=== PATIENT | male | born 1990 | race Caucasian/White ===

== ENCOUNTER 2020-01-19 16:08 | Emergency (ER) | payer BC, OTHER ==
[2020-01-19] MEDS ORDERED: Diphtheria,Pertussis(Acell),Tetanus Vaccine 0.5 ML Syringe IM ONE (19:02)
[2020-01-19] MEDS ORDERED: Proparacaine 0.5% Ophth Soln 15 ML Bottle EYERT ONE (19:02)
[2020-01-19] MEDS ORDERED: Fluorescein 1 MG Ophth Strip EYERT ONE (19:02)
[2020-01-19] MEDS ORDERED: Ciprofloxacin 0.3% Ophth Soln 5 ML Bottle EYERT SCH (19:45)
--- NOTE | 2020-01-19 19:46 | EDM.PDOC ---
ED HPI GENERAL MEDICAL PROBLEM - General Chief Complaint: Eye Problems Stated Complaint: RIGHT EYE INJURY Time Seen by Provider: 01/19/20 17:55 - History of Present Illness INITIAL COMMENTS - FREE TEXT/NARRATIVE: 29-year-old male presents with right-sided eye pain. This morning when the patient awoke he noticed his eye was really watery and he has some discomfort almost to the top of his eye. Patient does not recall getting foreign body in his eye however he works in a wood shop usually if he gets a wood chip in his eye he is able to get out without too much difficulty. When the patient went to bed last night he was doing fine but when he woke up this morning his eye was watery and sore. He has no idea when his last tetanus shot was. Right Eye Pain Score (Numeric/FACES): 5 - Related Data Allergies Allergy/AdvReac Type Severity Reaction Status Date / Time cat dander Allergy Itching Verified 01/19/20 17:02 hay fever Allergy Shortness Uncoded 01/19/20 17:02 of Breath Home Meds: Home Meds . [No Known Home Meds] 01/19/20 [History] Past Medical History HEENT History: Reports: Impaired Vision - Past Surgical History HEENT Surgical History: Reports: Oral Surgery Social & Family History - Caffeine Use Caffeine Use: Reports: Energy Drinks - Recreational Drug Use Recreational Drug Use: No ED ROS GENERAL - Review of Systems Review Of Systems: See Below Constitutional: Reports: No Symptoms HEENT: Reports: Eye Pain Respiratory: Reports: No Symptoms Cardiovascular: Reports: No Symptoms GI/Abdominal: Reports: No Symptoms ED EXAM GENERAL W FULL EYE - Physical Exam Exam: See Below Exam Limited By: No Limitations General Appearance: Alert, No Apparent Distress Eye Exam: Right Eye: Conjunctival Injection, Left Eye: Normal Inspection, Bilateral Eye: EOMI, Normal Fundi, PERRL Eyelids: Bilateral: Normal Appearance Conjunctiva & Sclera: Right: Injected, Left: Normal Appearance Cornea Exam: Right: Corneal Abrasion (At the 10 o'clock position), Examined with Flourescein Extraocular Movements: Bilateral: Intact Pupillary Reaction: Bilateral: Brisk Anterior Chamber: Bilateral: Normal Appearance Posterior Chamber: Bilateral: Normal Funduscopic Respiratory/Chest: No Respiratory Distress, Lungs Clear, Normal Breath Sounds Cardiovascular: Regular Rate, Rhythm, No Edema, No Murmur Course - Vital Signs Last Recorded V/S: Last Vital Signs Temp 36.7 C 01/19/20 16:58 Pulse 80 01/19/20 16:58 Resp 14 01/19/20 16:58 BP 139/100 H 01/19/20 16:58 Pulse Ox 95 01/19/20 16:58 - Orders/Labs/Meds Orders: Active Orders 24 hr Category Date Time Status Vaccines to be Administered [RC] PER UNIT ROUTINE Care 01/19/20 19:04 Active Ciprofloxacin [Ciloxan 0.3% Ophth Soln] Med 01/19/20 19:45 Ordered 3.5 ml EYERT Q8H Ketorolac [Acular 0.5% Ophth Soln] Med 01/19/20 21:00 Ordered 2.5 ml EYERT QID Medication Orders Ciprofloxacin (Ciloxan 0.3% Ophth Soln) 3.5 ml EYERT Q8H KAYLENE Ketorolac Tromethamine (Acular 0.5% Ophth Soln) 2.5 ml EYERT QID KAYLENE Meds: Medications Generic Name Dose Route Start Last Admin Trade Name Freq PRN Reason Stop Dose Admin Ciprofloxacin 3.5 ml 01/19/20 19:45 Ciloxan 0.3% Ophth Soln EYERT Q8H KAYLENE Ketorolac Tromethamine 2.5 ml 01/19/20 21:00 Acular 0.5% Ophth Soln EYERT QID KAYLENE Discontinued Medications Generic Name Dose Route Start Last Admin Trade Name Freq PRN Reason Stop Dose Admin Diphtheria/Tetanus/Acell Pertussis 0.5 ml 01/19/20 19:02 01/19/20 19:18 Adacel IM 01/19/20 19:03 0.5 ml .ONCE ONE Administration Fluorescein Sodium 1 mg 01/19/20 19:02 01/19/20 19:18 Ful-Alina EYERT 01/19/20 19:03 1 mg ONETIME ONE Administration Proparacaine HCl 0.1 ml 01/19/20 19:02 01/19/20 19:18 Proparacaine 0.5% Ophth Soln EYERT 01/19/20 19:03 0.1 ml ONETIME ONE Administration - Re-Assessments/Exams Free Text/Narrative Re-Assessment/Exam: 01/19/20 19:50 Partially healed corneal defect, or abrasion noted on the right eye with a slit lamp examination and fluorescein. Departure - Departure Time of Disposition: 19:50 Disposition: Home, Self-Care 01 Clinical Impression: Corneal abrasion - Discharge Information Referrals: Paula Barros MD [Primary Care Provider] - Additional Instructions: Return to the emergency room with any questions problems or worsening symptoms. Use the ketorolac drops 2 drops every 6 hours as needed for eye pain you should not need this more than 24 hours. Use on the right eye Use the Cipro drops 2 drops every 8 hours for 3 days to the right eye Sepsis Event Note (ED) - Evaluation Sepsis Screening Result: No Definite Risk - Focused Exam Vital Signs: Vital Signs Temp Pulse Resp BP Pulse Ox 01/19/20 16:58 36.7 C 80 14 139/100 H 95 - My Orders Last 24 Hours: My Active Orders 01/19/20 19:04 Vaccines to be Administered [RC] PER UNIT ROUTINE 01/19/20 19:45 Ciprofloxacin [Ciloxan 0.3% Ophth Soln] 3.5 ml EYERT Q8H 01/19/20 21:00 Ketorolac [Acular 0.5% Ophth Soln] 2.5 ml EYERT QID - Assessment/Plan Last 24 Hours: My Active Orders 01/19/20 19:04 Vaccines to be Administered [RC] PER UNIT ROUTINE 01/19/20 19:45 Ciprofloxacin [Ciloxan 0.3% Ophth Soln] 3.5 ml EYERT Q8H 01/19/20 21:00 Ketorolac [Acular 0.5% Ophth Soln] 2.5 ml EYERT QID
[2020-01-19] MEDS ORDERED: Ketorolac 0.5% Ophth Soln 5 ML Bottle EYERT SCH (21:00)
== END 2020-01-19 19:58 | disposition home or self-care (01) ==
LOC: JD.ED 16:08
DX: S05.01XA Injury of conjunctiva and corneal abrasion without foreign body, right eye, initial encounter (principal); Z23 Encounter for immunization; Z91.09 Other allergy status, other than to drugs and biological substances; X58.XXXA Exposure to other specified factors, initial encounter
CPT/HCPCS: 90471; 90715; 99283; A9270

== ENCOUNTER 2021-02-22 15:14 | Emergency (ER) | payer OTHER ==
[2021-02-22] MEDS ORDERED: Cyclobenzaprine 10 MG Tab PO ONE (18:57)
[2021-02-22] MEDS ORDERED: Ketorolac 60 MG/2 ML SDV IM ONE (18:57)
--- NOTE | 2021-02-22 19:01 | EDM.PDOC ---
ED HPI GENERAL MEDICAL PROBLEM - General Chief Complaint: Back Pain or Injury Stated Complaint: BACK PAIN Time Seen by Provider: 02/22/21 18:45 Source of Information: Reports: Patient, RN Notes Reviewed History Limitations: Reports: No Limitations - History of Present Illness INITIAL COMMENTS - FREE TEXT/NARRATIVE: Patient is a 30-year-old male presenting to the emergency department with complaints of bilateral low back pain. He reports that he does have some degree of chronic low back pain, however upon waking this morning his symptoms are significantly worse. Denies any known injury but states that he does lift heavy objects from the ground repetitively throughout the day as he installs cabinetry for living. States that the low back feels tight "like he needs to pop something ". Denies any bowel or bladder dysfunction. He has had no numbness or tingling down his extremities with the exception of some numbness of his right leg which she states is chronic due to injuries in the . Patient reports that he took ibuprofen earlier this morning and that it did help for short period of time, however he forgot to bring it with him to work so he has taken nothing for pain since that time. Bilateral Lower Back Pain Score (Numeric/FACES): 6 - Related Data Allergies Allergy/AdvReac Type Severity Reaction Status Date / Time cat dander Allergy Itching Verified 02/22/21 18:45 hay fever Allergy Shortness Uncoded 02/22/21 18:45 of Breath Home Meds: Home Meds Cyclobenzaprine [Flexeril] 10 mg PO TID PRN #10 tab 02/22/21 [Rx] Naproxen [Naprosyn] 500 mg PO Q12HR 5 Days #10 tab 02/22/21 [Rx] Past Medical History HEENT History: Reports: Impaired Vision Neurological History: Reports: Concussion Psychiatric History: Reports: Anxiety, Depression, PTSD - Past Surgical History HEENT Surgical History: Reports: Oral Surgery Social & Family History - Caffeine Use Caffeine Use: Reports: Energy Drinks - Recreational Drug Use Recreational Drug Type: Reports: Marijuana/Hashish Recreational Drug Use Frequency: Rarely ED ROS GENERAL - Review of Systems Review Of Systems: Comprehensive ROS is negative, except as noted in HPI. ED EXAM,LOWER BACK PAIN/INJURY - Physical Exam Exam: See Below Exam Limited By: No Limitations General Appearance: Alert, WD/WN, No Apparent Distress Respiratory/Chest: No Respiratory Distress, Lungs Clear, Normal Breath Sounds, No Accessory Muscle Use, Chest Non-Tender Cardiovascular: Normal Peripheral Pulses, Regular Rate, Rhythm, No Edema, No Gallop, No JVD, No Murmur, No Rub Back Exam: Normal Inspection, Full Range of Motion, Paraspinal Tenderness (right lateral to T12-L4), Vertebral Tenderness (T12-L4). No: CVA Tenderness (L), CVA Tenderness (R) Neurological: Alert, Normal Mood/Affect, Normal Dorsiflexion, CN II-XII Intact, Normal Plantar Flexion, Normal Gait, Normal Reflexes, No Motor/Sensory Deficits, Oriented x 3 Psychiatric: Normal Affect, Normal Mood Skin Exam: Warm, Dry, Intact, Normal Color, No Rash Course - Vital Signs Last Recorded V/S: Last Vital Signs Temp 97.4 F 02/22/21 18:40 Pulse 68 02/22/21 18:40 Resp 20 02/22/21 18:40 BP 157/109 H 02/22/21 18:40 Pulse Ox 96 02/22/21 18:40 - Orders/Labs/Meds Meds: Medications Discontinued Medications Generic Name Dose Route Start Last Admin Trade Name Joeyq PRN Reason Stop Dose Admin Cyclobenzaprine HCl 10 mg 02/22/21 18:57 02/22/21 19:12 Cyclobenzaprine 10 Mg Tab PO 02/22/21 18:58 10 mg ONETIME ONE Administration Ketorolac Tromethamine 60 mg 02/22/21 18:57 02/22/21 19:11 Ketorolac 60 Mg/2 Ml Sdv IM 02/22/21 18:58 60 mg ONETIME ONE Administration - Re-Assessments/Exams Free Text/Narrative Re-Assessment/Exam: Patient is a 30-year-old male presenting to the emergency department with complaints of low back pain. He has had no known injury but does do heavy lifting frequently at work. On exam, he has diffuse tenderness T12-L4 and right paraspinal muscles. Have ordered x-rays of the lumbar spine. We will give him Toradol 60 mg IM and Flexeril. 02/22/21 20:32 He did have significant provement in pain after the medications given. X-ray of the lumbar spine shows minimal disc base narrowing posteriorly at L4-L5. Otherwise unremarkable. Patient was started on naproxen and Flexeril. Recommend follow-up if symptoms do not improve over the next few days. Discharge instructions as documented. Departure - Departure Time of Disposition: 20:34 Disposition: Home, Self-Care 01 Condition: Good Clinical Impression: Back pain Qualifiers: Back pain location: low back pain Chronicity: acute Back pain laterality: midline Sciatica presence: without sciatica Qualified Code(s): M54.50 - Low back pain, unspecified - Discharge Information *PRESCRIPTION DRUG MONITORING PROGRAM REVIEWED*: No *COPY OF PRESCRIPTION DRUG MONITORING REPORT IN PATIENT JOMAR: No Prescriptions: Cyclobenzaprine [Flexeril] 10 mg PO TID PRN #10 tab PRN Reason: Muscle Spasm Naproxen [Naprosyn] 500 mg PO Q12HR 5 Days #10 tab Referrals: Paula Barros MD [Primary Care Provider] - Forms: ED Department Discharge Additional Instructions: Take the Naprosyn and Flexeril as prescribed. Ice intermittently over your low back. Avoid heavy lifting. If symptoms do not improve over the next few days, recommend follow-up in the clinic. Return to ER as needed. Sepsis Event Note (ED) - Evaluation Sepsis Screening Result: No Definite Risk - Focused Exam Vital Signs: Vital Signs Temp Pulse Resp BP Pulse Ox 02/22/21 18:40 97.4 F 68 20 157/109 H 96
--- NOTE | 2021-02-22 19:35 | CR ---
Lumbar spine: AP, lateral and coned-down lateral views centered to the lumbosacral junction were obtained. Comparison: No prior lumbar spine imaging is available. Very slight disc space narrowing is seen posteriorly at L4-5. Other disc spaces are maintained. Pedicles are intact. Visualized transverse and spinous processes are intact. Sacroiliac joints appear within normal limits. Impression: 1. Minimal disc space narrowing is noted posteriorly at L4-5. 2. Three-view lumbar spine study is otherwise unremarkable. Diagnostic code #2
== END 2021-02-22 20:50 | disposition home or self-care (01) ==
LOC: JD.ED 15:14
DX: M54.50 Low back pain, unspecified (principal); Z91.09 Other allergy status, other than to drugs and biological substances
CPT/HCPCS: 72100; 96372; 99283; A9270; J1885